=== PATIENT | male | born 1980 | race Caucasian/White ===

== ENCOUNTER 2016-11-16 08:55 | Inpatient (IN) | payer BC, OTHER ==
[~2016-11-16] VITALS: Ht 182.9 cm; Wt 90.0 kg
[~2016-11-16 08:55] MED LIST: VENL75 PO
[2016-11-16 09:00] VITALS: BP 144/74; PULSE 113; RESP 16; TEMP 99; O2SAT 96
--- NOTE | 2016-11-16 09:51 | PD ---
HPI Chief Complaint: Skin Problem Time Seen by Provider: 09:35 Travel History International Travel<30 days: No Contact w/Intl Traveler<30days: No Traveled to known affect area: No History of Present Illness HPI This patient complains of infection in his right elbow. Duration 2-3 days. Severity is moderate. He took his temperature at home was 100. Yesterday he saw his family physician who lisbeth fluid out of his elbow but the culture is still pending. He spoke with the physician this morning and they were told to come to the ER. He is currently taking Keflex and doxycycline and received Rocephin injection yesterday. No IV drug use history. Symptoms have no alleviating factors. He says the redness warmth and pain or spreading despite the antibiotics. PFSH Past Medical History Diabetes: No Endocrine: No Immune Disorder: No Psychiatric: Yes Thyroid Disease: No ?: Not Past Surgical History Abdominal Surgery: Yes (Bilateral Hernia SX as child) Joint Replacement: No Social History Alcohol Use: No Tobacco Use: No Substance Use: No Allergies-Medications (Allergen,Severity, Reaction): Coded Allergies: No Known Allergies (Unverified , 03/26/13) Reported Meds & Prescriptions Reported Meds & Active Scripts Active Reported Effexor 75 Mg Tab (Venlafaxine HCl) 75 Mg Tab 75 Mg PO BID Review of Systems General / Constitutional: Positive: Fever Eyes: No: Visual changes HENT: No: Headaches Cardiovascular: Positive: Tachycardia, No: Chest Pain or Discomfort Respiratory: No: Shortness of Breath Gastrointestinal: No: Abdominal Pain Genitourinary: No: Dysuria Musculoskeletal: Positive: Arthralgias, Pain Skin: No Rash Neurologic: No: Weakness Psychiatric: No: Depression Endocrine: No: Polydipsia Hematologic/Lymphatic: No: Easy Bruising Physical Exam Narrative GENERAL: Well-nourished, well-developed patient in no apparent distress. SKIN: Focused skin assessment reveals no rash and nodules. Skin is Warm and dry. HEAD: Atraumatic. Normocephalic. EYES: Pupils equal and round. No scleral icterus. No injection or drainage. ENT: No nasal bleeding or discharge. Mucous membranes pink and moist. NECK: Trachea midline. No JVD. CARDIOVASCULAR: Regular rate and rhythm. No murmur appreciated. RESPIRATORY: No accessory muscle use. Clear to auscultation. Breath sounds equal bilaterally. GASTROINTESTINAL: Abdomen soft, non-tender, nondistended. Hepatic and splenic margins not palpable. MUSCULOSKELETAL: No obvious deformities. No clubbing. No cyanosis. No edema. Right elbow shows that there is macular erythema around the joint as well as some swelling. It is tender. He does have some pain with passive extension of the elbow. Neurovascularly intact. NEUROLOGICAL: Awake and alert. No obvious cranial nerve deficits. Motor grossly within normal limits. Normal speech. PSYCHIATRIC: Appropriate mood and affect; insight and judgment normal. Data Data Last Documented VS Vital Signs Date Time Temp Pulse Resp B/P (MAP) Pulse Ox O2 Delivery O2 Flow Rate FiO2 11/16/16 09:09 16 11/16/16 09:00 99.0 113 144/74 (97) 96 Orders Orders Iv Access Insert/Monitor (11/16/16 09:46) Complete Blood Count With Diff (11/16/16 09:46) Basic Metabolic Panel (Bmp) (11/16/16 09:46) Prothrombin Time / Inr (Pt) (11/16/16 09:46) Act Partial Throm Time (Ptt) (11/16/16 09:46) Vancomycin Inj (Vancomycin Inj) (11/16/16 10:00) Oxycodone-Acetamin 5-325 Mg (Percocet (11/16/16 10:45) Admit Order (Ed Use Only) (11/16/16 11:47) Admit To Inpatient (11/16/16 ) Code Status (11/16/16 11:47) Vital Signs (Adult) Q4H (11/16/16 11:47) Activity Oob With Assistance (11/16/16 11:47) Diet Regular Basic (11/16/16 Lunch) Sodium Chloride 0.9% Flush (Ns Flush) (11/16/16 12:00) Sodium Chloride 0.9% Flush (Ns Flush) (11/16/16 21:00) Acetaminophen (Tylenol) (11/16/16 12:00) Ondansetron Inj (Zofran Inj) (11/16/16 12:00) Comprehensive Metabolic Panel (11/17/16 06:00) Complete Blood Count With Diff (11/17/16 06:00) Acetamin-Hydrocod 325-5 Mg (Merino 5-325 (11/16/16 12:00) Acetamin-Hydrocod 325-10 Mg (Merino 10-32 (11/16/16 12:00) Naloxone Inj (Narcan Inj) (11/16/16 12:00) Inpatient Certification (11/16/16 ) Vancomycin Consult Pharmacy (Vancomycin (11/16/16 12:00) Vancomycin Inj (Vancomycin Inj) (11/17/16 09:00) Labs Laboratory Tests Test 11/16/16 09:50 White Blood Count 10.9 TH/MM3 Red Blood Count 4.90 MIL/MM3 Hemoglobin 15.0 GM/DL Hematocrit 42.3 % Mean Corpuscular Volume 86.3 FL Mean Corpuscular Hemoglobin 30.6 PG Mean Corpuscular Hemoglobin Concent 35.5 % Red Cell Distribution Width 12.7 % Platelet Count 155 TH/MM3 Mean Platelet Volume 9.7 FL Neutrophils (%) (Auto) 83.8 % Lymphocytes (%) (Auto) 7.4 % Monocytes (%) (Auto) 8.2 % Eosinophils (%) (Auto) 0.4 % Basophils (%) (Auto) 0.2 % Neutrophils # (Auto) 9.1 TH/MM3 Lymphocytes # (Auto) 0.8 TH/MM3 Monocytes # (Auto) 0.9 TH/MM3 Eosinophils # (Auto) 0.0 TH/MM3 Basophils # (Auto) 0.0 TH/MM3 CBC Comment DIFF FINAL Differential Comment Prothrombin Time 10.8 SEC Prothromb Time International Ratio 1.0 RATIO Activated Partial Thromboplast Time 30.1 SEC Blood Urea Nitrogen 9 MG/DL Creatinine 1.19 MG/DL Random Glucose 110 MG/DL Calcium Level 8.6 MG/DL Sodium Level 137 MEQ/L Potassium Level 4.0 MEQ/L Chloride Level 104 MEQ/L Carbon Dioxide Level 26.2 MEQ/L Anion Gap 7 MEQ/L Estimat Glomerular Filtration Rate 68 ML/MIN [facility] Medical Decision Making Medical Screen Exam Complete: Yes Emergency Medical Condition: Yes Medical Record Reviewed: Yes Differential Diagnosis Septic joint, bursitis, cellulitis Narrative Course I have reviewed the patient's electronic medical record. Patient was last here 2013 IV placed I gave the patient 1 g IV vancomycin Fluid has already been drawn for culture but is pending according to the patient. I have placed a call to the family physician to discuss and confirm. CBC is normal Metabolic profile is normal Coagulation studies are normal I spoke with the physician who saw this patient yesterday. He was sent pictures of the elbow by the patient's . He says that this is definitely worsened since yesterday and agrees with admission for IV antibiotics. They lisbeth fluid from the bursa sac not the joint itself. I reviewed this with Dr. Lima who will admit. He will figure out if this is a septic joint or not. Patient does have low-grade temp and tachycardia but only minor discomfort with passive extension Sepsis Criteria SIRS Criteria (2 or more): Heart rate over 90 Sepsis Criteria (SIRS+source): Infect source susp/known Diagnosis Primary Impression: Cellulitis of right arm Additional Impression: Failure of outpatient treatment Admitting Information Admitting Physician Requests: it Flash Dominguez MD Nov 16, 2016 09:51
[2016-11-16] MEDS ORDERED: VANCOMYCIN INJ 1,000 MG in SODIUM CHLOR 0.9% 250 ML INJ 250 ML IV ONE (10:00)
[2016-11-16 10:22] LABS: AUTOMATED NEUTROPHIL # 9.1 TH/MM3 (1.8-7.7); BASOPHIL % 0.2 % (0.0-2.0); EOSINOPHIL % 0.4 % (0.0-4.0); HEMATOCRIT 42.3 % (39.0-51.0); HEMO FLAGS DIFF FINAL; LYMPH % 7.4 % (9.0-44.0); LYMPHOCYTE # 0.8 TH/MM3 (1.0-4.8); MEAN CELL VOLUME 86.3 FL (80.0-100.0); MEAN CORPUSCULAR HEMOGLOBIN 30.6 PG (27.0-34.0); MEAN CORPUSCULAR HGB CONC 35.5 % (32.0-36.0); MONO % 8.2 % (0.0-8.0); NEUT % 83.8 % (16.0-70.0); PLATELET COUNT 155 TH/MM3 (150-450); RED CELL DISTRIBUTION WIDTH 12.7 % (11.6-17.2); WHITE BLOOD COUNT 10.9 TH/MM3 (4.0-11.0)
[2016-11-16 10:26] LABS: APTT (PATIENT) 30.1 SEC (24.3-30.1); PROTHROMBIN TIME - PATIENT 10.8 SEC (9.8-11.6)
[2016-11-16 10:27] LABS: BICARBONATE 26.2 MEQ/L (21.0-32.0)
[2016-11-16] MEDS ORDERED: oxyCODONE/ACETAMINOPHEN 5 MG/325 MG TAB PO ONE (10:45)
[2016-11-16 12:00] VITALS: BP 127/80; PULSE 92; RESP 16; O2SAT 98
[2016-11-16] MEDS ORDERED: ONDANSETRON HCL 4 MG/2 ML VIAL IVP PRN (12:00)
[2016-11-16] MEDS ORDERED: ACETAMINOPHEN/HYDROcodone 325 MG/5 MG TAB PO PRN (12:00)
[2016-11-16] MEDS ORDERED: NALOXONE HCL 0.4 MG/ML AMP IV PRN (12:00)
[2016-11-16] MEDS ORDERED: ACETAMINOPHEN 325 MG TAB PO PRN (12:00)
[2016-11-16] MEDS ORDERED: Vancomycin Consult Pharmacy 1 EA OTHER SCH (12:00)
[2016-11-16] MEDS ORDERED: SODIUM CHLORIDE 0.9% FLUSH 10 ML FLUSH IV FLUSH PRN (12:00)
[2016-11-16 13:58] VITALS: BP 118/73; PULSE 87; RESP 17; TEMP 97.5; O2SAT 98
[2016-11-16] MEDS: ACETAMINOPHEN/HYDROcodone 325 MG/10 MG TAB PO PRN ×3 (15:08→23:21)
[2016-11-16 16:00] VITALS: BP 130/73; PULSE 87; RESP 17; TEMP 98.8; O2SAT 99
[2016-11-16] MEDS ORDERED: ENALAPRILAT 1.25 MG/ML VIAL IV PUSH PRN (16:00)
--- NOTE | 2016-11-16 16:05 | HHI.HP ---
HPI Service [facility] Primary Care Physician Dann Bush, DO Admission Diagnosis R elbow infection, failure of outpt RX Diagnoses: (1) Bursitis due to bacterial infection (2) Cellulitis of right arm (3) Failure of outpatient treatment Chief Complaint: Swollen And painful right elbow Travel History International Travel<30 Days: No Contact w/Intl Traveler <30 Da: No Traveled to Known Affected Are: No Sepsis Criteria SIRS Criteria (2 or more): Temp > 100.9 or < 96.8, Heart rate over 90 Sepsis Criteria (SIRS+source): Infect source susp/known Criteria Outcome: Meets sepsis criteria History of Present Illness 36-year-old male with a history of anxiety present to the ED for evaluation of acute onset of right elbow swollen redness and pain rated 6/10 in intensity since Saturday night associated with decrease range of motion as well as febrile episodes. Patient was seen by his PCP on and was prescribed Keflex 500 mg every 8 doxy 100 mg twice a day and was given Rocephin 1 g IM 1. X-ray of the elbow was obtained. Patient also stated that fluid was collected along with blood culture from his elbow, however denies any purulence. This morning, when patient awoke he noticed increased swelling and redness as well as more pain associated with his right elbow. He was advised by his PCP to come to the ED for further evaluation. He reports that 2 weeks ago he sustained a small cut to his right elbow, and at the time had no sign of infection. Otherwise patient denies any GI bleed, he has no chest pain or shortness of breath. Review of Systems Except as stated in HPI: all other systems reviewed are Neg Past Family Social History Past Medical History Anxiety Past Surgical History Bilateral hernia repair as a child Reported Medications Effexor Allergies: Coded Allergies: No Known Allergies (Unverified , 03/26/13) Family History Father has history of hyperlipidemia. There is a strong family history of breast cancer on his paternal side Social History Patient denies tobacco, illicit drug intake. Reports social alcohol use. Physical Exam Vital Signs Vital Signs Date Time Temp Pulse Resp B/P (MAP) Pulse Ox O2 Delivery O2 Flow Rate FiO2 11/16/16 13:58 97.5 87 17 118/73 (88) 98 11/16/16 13:46 11/16/16 12:00 92 16 127/80 (96) 98 Room Air 11/16/16 11:47 17 11/16/16 09:09 16 11/16/16 09:00 99.0 113 16 144/74 (97) 96 Physical Exam GENERAL: This is a well-nourished, well-developed patient, in no apparent distress. SKIN: No rashes, ecchymoses or lesions. Cool and dry. HEAD: Atraumatic. Normocephalic. No temporal or scalp tenderness. EYES: Pupils equal round and reactive. Extraocular motions intact. No scleral icterus. No injection or drainage. ENT: Nose without bleeding, purulent drainage or septal hematoma. Throat without erythema, tonsillar hypertrophy or exudate. Uvula midline. Airway patent. NECK: Trachea midline. No JVD or lymphadenopathy. Supple, nontender, no meningeal signs. CARDIOVASCULAR: Regular rate and rhythm without murmurs, gallops, or rubs. RESPIRATORY: Clear to auscultation. Breath sounds equal bilaterally. No wheezes , rales, or rhonchi. GASTROINTESTINAL: Abdomen soft, non-tender, nondistended. No hepato-splenomegaly , or palpable masses. No guarding. MUSCULOSKELETAL: Extremities without clubbing, cyanosis, or edema. No joint tenderness, effusion, or edema noted. Right elbow shows that there is macular erythema around the joint as well as some swelling. Neurovascularly intact. NEUROLOGICAL: Awake and alert. Cranial nerves II through XII intact. Motor and sensory grossly within normal limits. Five out of 5 muscle strength in all muscle groups. Normal speech. Laboratory Laboratory Tests Test 11/16/16 09:50 White Blood Count 10.9 Red Blood Count 4.90 Hemoglobin 15.0 Hematocrit 42.3 Mean Corpuscular Volume 86.3 Mean Corpuscular Hemoglobin 30.6 Mean Corpuscular Hemoglobin Concent 35.5 Red Cell Distribution Width 12.7 Platelet Count 155 Mean Platelet Volume 9.7 Neutrophils (%) (Auto) 83.8 Lymphocytes (%) (Auto) 7.4 Monocytes (%) (Auto) 8.2 Eosinophils (%) (Auto) 0.4 Basophils (%) (Auto) 0.2 Neutrophils # (Auto) 9.1 Lymphocytes # (Auto) 0.8 Monocytes # (Auto) 0.9 Eosinophils # (Auto) 0.0 Basophils # (Auto) 0.0 CBC Comment DIFF FINAL Differential Comment Prothrombin Time 10.8 Prothromb Time International Ratio 1.0 Activated Partial Thromboplast Time 30.1 Blood Urea Nitrogen 9 Creatinine 1.19 Random Glucose 110 Calcium Level 8.6 Sodium Level 137 Potassium Level 4.0 Chloride Level 104 Carbon Dioxide Level 26.2 Anion Gap 7 Estimat Glomerular Filtration Rate 68 Result Diagram: 11/16/1650 11/16/16949 Septic Shock Reassessment Heart: Regular rate and rhythm Lungs: Clear Skin: Warm Capillary Refill: >2 seconds Caprini VTE Risk Assessment Caprini VTE Risk Assessment: No/Low Risk (score <= 1) Caprini Risk Assessment Model Point Value = 1 Point Value = 2 Point Value = 3 Point Value = 5 Age 41-60 Minor surgery BMI > 25 kg/m2 Swollen legs Varicose veins or History of unexplained or recurrent spontaneous Oral contraceptives or hormone replacement Sepsis (< 1 month) Serious lung disease, including pneumonia (< 1 month) Abnormal pulmonary function Acute myocardial infarction Congestive heart failure (< 1 month) History of inflammatory bowel disease Medical patient at bed rest Age 61-74 Arthroscopic surgery Major open surgery (> 45 min) Laparoscopic surgery (> 45 min) Malignancy Confined to bed (> 72 hours) Immobilizing plaster cast Central venous access Age >= 75 History of VTE Family history of VTE Factor V Leiden Prothrombin [id number] Lupus anticoagulant Anticardiolipin antibodies Elevated serum homocysteine Heparin-induced thrombocytopenia Other congenital or acquired thrombophilia Stroke (< 1 month) Elective arthroplasty Hip, pelvis, or leg fracture Acute spinal cord injury (< 1 month) Prophylaxis Regimen Total Risk Factor Score Risk Level Prophylaxis Regimen 0-1 Low Early ambulation 2 Moderate Order ONE of the following: *Sequential Compression Device (SCD) *Heparin 5000 units SQ BID 3-4 Higher Order ONE of the following medications: *Heparin 5000 units SQ TID *Enoxaparin/Lovenox 40 mg SQ daily (WT < 150 kg, CrCl > 30 mL/min) *Enoxaparin/Lovenox 30 mg SQ daily (WT < 150 kg, CrCl > 10-29 mL/min) *Enoxaparin/Lovenox 30 mg SQ BID (WT < 150 kg, CrCl > 30 mL/min) AND/OR *Sequential Compression Device (SCD) 5 or more Highest Order ONE of the following medications: *Heparin 5000 units SQ TID (Preferred with Epidurals) *Enoxaparin/Lovenox 40 mg SQ daily (WT < 150 kg, CrCl > 30 mL/min) *Enoxaparin/Lovenox 30 mg SQ daily (WT < 150 kg, CrCl > 10-29 mL/min) *Enoxaparin/Lovenox 30 mg SQ BID (WT < 150 kg, CrCl > 30 mL/min) AND *Sequential Compression Device (SCD) Assessment and Plan Problem List: (1) Sepsis ICD Code: A41.9 - Sepsis, unspecified organism (2) Cellulitis of right arm ICD Code: L03.113 - Cellulitis of right upper limb Status: Acute (3) Bursitis due to bacterial infection ICD Code: M71.10 - Other infective bursitis, unspecified site; B96.89 - Other specified bacterial agents as the cause of diseases classified elsewhere (4) Failure of outpatient treatment ICD Code: Z78.9 - Other specified health status Status: Acute Assessment and Plan 36-year-old man with Sepsis: Patient had subjective fever, HR 113; source of infection (cellulitis right elbow/bursitis due to infection); status post vancomycin IV 1 in ED. Will continue vancomycin and start Zosyn pending culture report Cellulitis right elbow Bursitis due to infection of right elbow Rule out septic joint Check right elbow ULTRASOUND Check CRP, ESR Start vancomycin and Zosyn IV pending culture reports Consider consultation to orthopedic surgery possible aspiration pending right elbow Pain management accordingly Anxiety Resume Effexor DVT prophylaxis: Low risk for VTE; encourage ambulation Code Status Full code Discussed Condition With Patient, ED physician Physician Certification 2 Midnight Certification Type: Admission for Inpatient Services Order for Inpatient Services The services are ordered in accordance with Medicare regulations or non- Medicare payer requirements, as applicable. In the case of services not specified as inpatient-only, they are appropriately provided as inpatient services in accordance with the 2-midnight benchmark. Estimated LOS (days): 2 days is the estimated time the patient will need to remain in the hospital, assuming treatment plan goals are met and no additional complications. Post-Hospital Plan: Not yet determined Shemar Lima MD Nov 16, 2016 16:05
[2016-11-16] MEDS: PIPERACIL-TAZO 3.375 GM PREMIX 50 ML IV SCH (17:27)
--- NOTE | 2016-11-16 18:21 | RADRPT ---
EXAM DATE/TIME: 11/16/2016 17:01 [facility] COMPARISON: No previous studies available for comparison. INDICATIONS : Right arm swelling and pain. MEDICAL HISTORY : Anxiety. Right elbow swelling and pain. SURGICAL HISTORY : Inguinal hernia repair. ENCOUNTER: Initial ACUITY: 4-6 days PAIN SCORE: 2/10 LOCATION: Right arm. AREA EVALUATED: Elbow, Posterior arm just prox and just distal to elbow. FINDINGS: There is a crescentic fluid collection along the distal posterior arm near the elbow measuring up to 2.7 cm in length and 4.4 mm in diameter with overlying soft tissue swelling, edema and increased vasc ularity. CONCLUSION: 1. Small crescentic fluid collection in the soft tissues overlying the distal right arm and elbow wit h probable overlying cellulitis. Russell Knapp MD on November 16, 2016 at 18:18 Board Certified Radiologist. This report was verified electronically.
[2016-11-16 20:00] VITALS: BP 122/70; PULSE 101; RESP 20; TEMP 100; O2SAT 98
[2016-11-16] MEDS: VENLAFAXINE HCL 75 MG TAB PO SCH (21:00)
[2016-11-16] MEDS ORDERED: ZOLPIDEM TARTRATE 5 MG TAB PO PRN (21:00)
[2016-11-16] MEDS: SODIUM CHLORIDE 0.9% FLUSH 10 ML FLUSH IV FLUSH SCH (21:25)
[2016-11-16] MEDS: LACTOBACILLUS ACIDOPHILUS TAB PO SCH (21:26)
[2016-11-16] MEDS: VANCOMYCIN INJ 1,250 MG in SODIUM CHLOR 0.9% 250 ML INJ 250 ML IV SCH (21:28)
[2016-11-17] VITALS: BP 124/73; PULSE 70; RESP 20; TEMP 96.3; O2SAT 96
[2016-11-17] MEDS: PIPERACIL-TAZO 3.375 GM PREMIX 50 ML IV SCH ×4 (00:33→23:46)
[2016-11-17] MEDS: ACETAMINOPHEN/HYDROcodone 325 MG/10 MG TAB PO PRN ×3 (07:37→17:35)
[2016-11-17 08:00] VITALS: BP 116/72; PULSE 90; RESP 17; TEMP 98.2; O2SAT 96
[2016-11-17 08:00] LABS: AUTOMATED NEUTROPHIL # 6.1 TH/MM3 (1.8-7.7); BASOPHIL % 0.4 % (0.0-2.0); EOSINOPHIL # 0.2 TH/MM3 (0-0.4); EOSINOPHIL % 2.2 % (0.0-4.0); HEMATOCRIT 42.5 % (39.0-51.0); HEMO FLAGS DIFF FINAL; LYMPH % 15.5 % (9.0-44.0); LYMPHOCYTE # 1.3 TH/MM3 (1.0-4.8); MEAN CELL VOLUME 86.9 FL (80.0-100.0); MEAN CORPUSCULAR HEMOGLOBIN 30.8 PG (27.0-34.0); MEAN CORPUSCULAR HGB CONC 35.4 % (32.0-36.0); MONO % 9.7 % (0.0-8.0); NEUT % 72.2 % (16.0-70.0); PLATELET COUNT 155 TH/MM3 (150-450); RED BLOOD COUNT 4.89 MIL/MM3 (4.50-5.90); RED CELL DISTRIBUTION WIDTH 12.9 % (11.6-17.2); WHITE BLOOD COUNT 8.4 TH/MM3 (4.0-11.0)
[2016-11-17 08:10] LABS: ANION GAP 4 MEQ/L (5-15); AST (GOT) 26 U/L (15-37); BICARBONATE 28.8 MEQ/L (21.0-32.0); BLOOD UREA NITROGEN 7 MG/DL (7-18); CHLORIDE 103 MEQ/L (98-107); GLOMERULAR FILTRATION RATE 77 ML/MIN (>89); POTASSIUM 3.8 MEQ/L (3.5-5.1); SODIUM (NA) 136 MEQ/L (136-145)
[2016-11-17 08:11] LABS: ALKALINE PHOSPHATASE 52 U/L (45-117); ALT (GPT) 42 U/L (12-78); TOTAL BILIRUBIN ADULT 0.9 MG/DL (0.2-1.0)
[2016-11-17] MEDS ORDERED: VANCOMYCIN INJ 1,250 MG in SODIUM CHLOR 0.9% 250 ML INJ 250 ML IV SCH (09:00)
[2016-11-17] MEDS: VENLAFAXINE HCL 75 MG TAB PO SCH ×2 (09:43→20:07)
[2016-11-17] MEDS: LACTOBACILLUS ACIDOPHILUS TAB PO SCH ×2 (09:43→20:07)
[2016-11-17] MEDS: SODIUM CHLORIDE 0.9% FLUSH 10 ML FLUSH IV FLUSH SCH ×2 (09:44→21:00)
[2016-11-17] MEDS: VANCOMYCIN INJ 1,250 MG in SODIUM CHLOR 0.9% 250 ML INJ 250 ML IV SCH ×2 (10:25→22:00)
--- NOTE | 2016-11-17 11:59 | HHI.PR ---
Subjective Remarks Follow-up sepsis/right elbow cellulitis 11/17/16-patient seen and examined, Tmax 100 at midnight however currently afebrile. Patient reports significant improvement of right elbow pain and is able now to extend and flex. He also reports decreased swelling to right elbow Objective Vitals Vital Signs Date Time Temp Pulse Resp B/P (MAP) Pulse Ox O2 Delivery O2 Flow Rate FiO2 11/17/16 08:00 98.2 90 17 116/72 (87) 96 11/17/16 00:00 96.3 70 20 124/73 (90) 96 11/16/16 20:00 100.0 101 20 122/70 (87) 98 11/16/16 16:00 98.8 87 17 130/73 (92) 99 11/16/16 13:58 97.5 87 17 118/73 (88) 98 11/16/16 13:46 11/16/16 12:00 92 16 127/80 (96) 98 Room Air I/O 11/16/16 11/16/16 11/16/16 11/17/16 11/17/16 11/17/16 07:00 15:00 23:00 07:00 15:00 23:00 Intake Total 250 ml 360 ml 240 ml Balance 250 ml 360 ml 240 ml Intake Oral 360 ml 240 ml IV Total 250 ml # Voids 1 3 # Bowel Movements 0 0 Result Diagram: 11/17/16 0743 11/17/16 0743 Imaging Last Impressions Upper Extremity Ultrasound 11/16/16 0000 Signed Impressions: Service Date/Time: Wednesday, November 16, 2016 17:01 - CONCLUSION: 1. Small crescentic fluid collection in the soft tissues overlying the distal right arm and elbow with probable overlying cellulitis. Russell Knapp MD Objective Remarks GENERAL: NAD SKIN: Warm and dry. Erythema surrounding the right elbow HEAD: Normocephalic. EYES: No scleral icterus. No injection or drainage. NECK: Supple, trachea midline. No JVD or lymphadenopathy. CARDIOVASCULAR: Regular rate and rhythm without murmurs, gallops, or rubs. RESPIRATORY: Breath sounds equal bilaterally. No accessory muscle use. GASTROINTESTINAL: Abdomen soft, non-tender, nondistended. MUSCULOSKELETAL: No cyanosis, or edema. Palpable fluid collection right elbow BACK: Nontender without obvious deformity. No CVA tenderness. A/P Problem List: (1) Sepsis ICD Code: A41.9 - Sepsis, unspecified organism (2) Cellulitis of right arm ICD Code: L03.113 - Cellulitis of right upper limb Status: Acute (3) Bursitis due to bacterial infection ICD Code: M71.10 - Other infective bursitis, unspecified site; B96.89 - Other specified bacterial agents as the cause of diseases classified elsewhere (4) Failure of outpatient treatment ICD Code: Z78.9 - Other specified health status Status: Acute Assessment and Plan 36-year-old man with Sepsis: Patient had subjective fever, HR 113; source of infection (cellulitis right elbow/bursitis due to infection); status post vancomycin IV 1 in ED. Will continue vancomycin and start Zosyn pending culture report Cellulitis right elbow Bursitis due to infection of right elbow Rule out septic joint right elbow ULTRASOUND noted with finding of fluid collection Elevated CRP, normal ESR Continue vancomycin and Zosyn IV pending culture reports Consider consultation to orthopedic surgery possible aspiration pending right elbow Pain management accordingly Anxiety Continue Effexor DVT prophylaxis: Low risk for VTE; encourage ambulation Shemar Lima MD Nov 17, 2016 11:59
[2016-11-17 12:00] VITALS: BP 130/63; PULSE 83; RESP 17; TEMP 97.4; O2SAT 98
[2016-11-17 16:00] VITALS: BP 104/60; PULSE 80; RESP 16; TEMP 98.4; O2SAT 98
[2016-11-17 20:00] VITALS: BP 116/63; PULSE 93; RESP 20; TEMP 99.1; O2SAT 96
[2016-11-17] MEDS: IBUPROFEN 400 MG TAB PO PRN (20:07)
[2016-11-17] MEDS ORDERED: PHARMACY ORDERED LAB ONE (21:45)
[2016-11-18] VITALS: BP 139/77; PULSE 77; RESP 20; TEMP 97.1; O2SAT 96
[2016-11-18 08:00] VITALS: BP 113/63; PULSE 74; RESP 16; TEMP 96.4; O2SAT 99
[2016-11-18] MEDS: SODIUM CHLORIDE 0.9% FLUSH 10 ML FLUSH IV FLUSH SCH ×2 (08:23→20:47)
[2016-11-18] MEDS: VENLAFAXINE HCL 75 MG TAB PO SCH ×2 (08:23→20:46)
[2016-11-18] MEDS: PIPERACIL-TAZO 3.375 GM PREMIX 50 ML IV SCH ×2 (08:23→17:09)
[2016-11-18] MEDS: LACTOBACILLUS ACIDOPHILUS TAB PO SCH ×2 (08:23→20:46)
[2016-11-18] MEDS: VANCOMYCIN INJ 1,250 MG in SODIUM CHLOR 0.9% 250 ML INJ 250 ML IV SCH ×2 (09:53→20:48)
[2016-11-18] MEDS: ACETAMINOPHEN/HYDROcodone 325 MG/10 MG TAB PO PRN ×3 (09:57→20:46)
--- NOTE | 2016-11-18 10:34 | HHI.PR ---
Subjective Remarks Follow-up sepsis/right elbow cellulitis 11/17/16-patient seen and examined, Tmax 100 at midnight however currently afebrile. Patient reports significant improvement of right elbow pain and is able now to extend and flex. He also reports decreased swelling to right elbow 11/18/16-patient seen and examined, currently afebrile. Denies any significant pain to the right elbow. Still has right elbow fluid collection Objective Vitals Vital Signs Date Time Temp Pulse Resp B/P (MAP) Pulse Ox O2 Delivery O2 Flow Rate FiO2 11/18/16 08:00 96.4 74 16 113/63 (80) 99 11/18/16 00:00 97.1 77 20 139/77 (97) 96 11/17/16 20:00 99.1 93 20 116/63 (80) 96 11/17/16 16:00 98.4 80 16 104/60 (75) 98 11/17/16 12:00 97.4 83 17 130/63 (85) 98 I/O 11/17/16 11/17/16 11/17/16 11/18/16 11/18/16 11/18/16 07:00 15:00 23:00 07:00 15:00 23:00 Intake Total 240 ml 1100 ml 120 ml Balance 240 ml 1100 ml 120 ml Intake Oral 240 ml 1100 ml 120 ml # Voids 3 3 2 # Bowel Movements 0 0 0 Result Diagram: 11/17/1674211/17/1643 Objective Remarks GENERAL: NAD SKIN: Warm and dry. Improving Erythema surrounding the right elbow HEAD: Normocephalic. EYES: No scleral icterus. No injection or drainage. NECK: Supple, trachea midline. No JVD or lymphadenopathy. CARDIOVASCULAR: Regular rate and rhythm without murmurs, gallops, or rubs. RESPIRATORY: Breath sounds equal bilaterally. No accessory muscle use. GASTROINTESTINAL: Abdomen soft, non-tender, nondistended. MUSCULOSKELETAL: No cyanosis, or edema. Palpable fluid collection right elbow BACK: Nontender without obvious deformity. No CVA tenderness. A/P Problem List: (1) Sepsis ICD Code: A41.9 - Sepsis, unspecified organism Status: Resolved (2) Cellulitis of right arm ICD Code: L03.113 - Cellulitis of right upper limb Status: Acute (3) Bursitis due to bacterial infection ICD Code: M71.10 - Other infective bursitis, unspecified site; B96.89 - Other specified bacterial agents as the cause of diseases classified elsewhere (4) Failure of outpatient treatment ICD Code: Z78.9 - Other specified health status Status: Acute Assessment and Plan 36-year-old man with Sepsis: Resolved continue vancomycin and start Zosyn pending culture report Cellulitis right elbow Bursitis due to infection of right elbow Rule out septic joint right elbow ULTRASOUND noted with finding of fluid collection Elevated CRP, normal ESR Continue vancomycin and Zosyn IV pending culture reports Consult orthopedic surgery possible aspiration of right elbow fluid collection Pain management accordingly Anxiety Continue Effexor DVT prophylaxis: Low risk for VTE; encourage ambulation Shemar Lima MD Nov 18, 2016 10:34
[2016-11-18 12:00] VITALS: BP 119/72; PULSE 80; RESP 17; TEMP 98.5; O2SAT 98
[2016-11-18 16:00] VITALS: BP 125/77; PULSE 83; RESP 17; TEMP 99.2; O2SAT 98
[2016-11-18] MEDS: IBUPROFEN 400 MG TAB PO PRN ×2 (16:18→22:19)
--- NOTE | 2016-11-18 16:28 | MB ---
cc: CATRACHITA GOODE DATE OF CONSULTATION 11/18/16 REASON FOR CONSULTATION Right elbow infection. CONSULTING PHYSICIAN Dr. Shemar Lima HISTORY OF PRESENT ILLNESS Tor is a 36-year-old male who was in the emergency room with right elbow pain, redness and swelling. The pain started this past Saturday. He has had trouble moving his arm. He has noticed increased swelling around the back of his arm. He has noticed bright redness of the skin. He presented to the emergency room, has been admitted for this injury. He did have a small cut to his elbow approximately 2 weeks ago. He has no other recent illness or problems. He is otherwise healthy. He denies any traumatic injuries. PAST MEDICAL HISTORY/ILLNESSES Anxiety. PAST SURGICAL HISTORY Bilateral hernia repair. MEDICATIONS 1. Effexor. ALLERGIES None. SOCIAL HISTORY The patient denies tobacco or drug use. He drinks alcohol occasionally. FAMILY HISTORY Positive for high cholesterol and a family history of breast cancer. REVIEW OF SYSTEMS The patient denies headache, visual changes, neck pain, chest pain, shortness of breath, abdominal pain, nausea, vomiting, recent weight loss, numbness or tingling of extremities. He complains of right elbow redness, swelling and pain. PHYSICAL EXAMINATION GENERAL: The patient is a pleasant 36-year-old male, no acute distress. He is awake and alert. He is alert and oriented times three. He is in no acute distress. VITAL SIGNS: Temperature 98.5, pulse 80, respirations 17, blood pressure 119/72, o2 sats 98% on room air. HEENT: Head normocephalic. Pupils are equal. NECK: Soft, nontender. Trachea is midline. ABDOMEN: Soft, nontender, nondistended. EXTREMITIES: Examination of right upper extremity reveals no pain with shoulder, wrist or finger motion. Examination of his elbow reveals range of motion from 10 degrees up to 130 degrees with minimal pain. He has significant fluctuance over the olecranon bursa. There is a large area of cellulitis around the arm. The forearm compartments are soft. He has intact sensation to all fingers. Radial pulses palpable. Examination of left arm reveals no pain with shoulder, elbow or wrist motion. He has intact sensation to all fingers. He has good capillary refill in all fingers. Skin is intact. Radial pulses palpable. Examination of bilateral lower extremities reveals no pain with hip, knee or ankle motion. He has intact dorsalis pedis pulses palpable. IMPRESSION Right elbow cellulitis with septic olecranon bursitis. PLAN Treatment options were discussed with the patient. At this point he will need irrigation and debridement of the olecranon bursa. There is a large area of fluctuance. I explained that antibiotics alone will not be able to get rid of this fluid collection and abscess. I will plan on irrigation and debridement of olecranon bursa tomorrow. The risks of surgery include bleeding, injection, injury to arteries, nerves, blood vessels, recurrent infection, wound complications as well as medical complications associated with anesthesia. All questions were answered. I will plan on surgery tomorrow. A mid-level provider in my office, nurse practitioner or PA, may see this patient on a follow-up basis and continue to implement the objective of this plan including: Starting or adjusting medications, injections of muscle, tendon, bursa or joints, cast application, orthotic or brace application, physical therapy, further radiographic studies including x-ray, MRI, CT, ultrasounds or bone scan, vascular studies, neurologic studies, or other specialist consultations, and proceeding with surgical management as appropriate. MD RAMA Jewell/RHINA /4:03 PM /4:07 PM
[2016-11-18 19:00] VITALS: BP 119/76; PULSE 92; RESP 18; TEMP 97.7; O2SAT 99
[2016-11-19] VITALS: BP 115/67; PULSE 66; RESP 18; TEMP 97.6; O2SAT 99
[2016-11-19] MEDS: PIPERACIL-TAZO 3.375 GM PREMIX 50 ML IV SCH ×3 (00:22→17:12)
[2016-11-19] MEDS: ACETAMINOPHEN/HYDROcodone 325 MG/10 MG TAB PO PRN ×3 (00:23→18:35)
[2016-11-19] MEDS ORDERED: SODIUM CHLORID 0.9% 500 ML IV PRN (02:00)
[2016-11-19] MEDS ORDERED: CHLORHEXIDINE GLUCONATE 2 % 1 PACK (2 CLOTHS) TOPICAL PRN (02:00)
[2016-11-19] MEDS ORDERED: METOPROLOL TARTRATE 25 MG TAB PO PRN (02:00)
[2016-11-19] MEDS ORDERED: POVIDONE IODINE 5% (ANTISEPSIS KIT) 4 APPLICATIONS EACH NARE PRN (02:00)
[2016-11-19] MEDS ORDERED: INSULIN HUMAN REGULAR 1,000 UNITS/10 ML VIAL SQ PRN (02:00)
[2016-11-19] MEDS ORDERED: LACTATED RINGER'S 1000 ML IV PRN (02:00)
[2016-11-19 05:49] VITALS: BP 111/64; PULSE 68; RESP 18; TEMP 97.4; O2SAT 97
[2016-11-19 08:00] VITALS: BP 122/75; PULSE 81; RESP 17; TEMP 96.4; O2SAT 97
[2016-11-19] MEDS: LACTOBACILLUS ACIDOPHILUS TAB PO SCH ×2 (09:00→21:35)
[2016-11-19] MEDS ORDERED: GENTAMICIN SULFATE 80 MG/2 ML VIAL ONE (09:03)
--- NOTE | 2016-11-19 09:11 | HHI.PR ---
Subjective Remarks Follow-up sepsis/right elbow cellulitis 11/17/16-patient seen and examined, Tmax 100 at midnight however currently afebrile. Patient reports significant improvement of right elbow pain and is able now to extend and flex. He also reports decreased swelling to right elbow 11/18/16-patient seen and examined, currently afebrile. Denies any significant pain to the right elbow. Still has right elbow fluid collection 11/19/16-patient seen and examined, currently nothing by mouth pending incision and drainage in the OR by orthopedic surgery of right infected bursitis. Afebrile and denies any significant pain to right elbow Objective Vitals Vital Signs Date Time Temp Pulse Resp B/P (MAP) Pulse Ox O2 Delivery O2 Flow Rate FiO2 11/19/16 08:00 96.4 81 17 122/75 (91) 97 11/19/16 05:49 97.4 68 18 111/64 (80) 97 11/19/16 04:00 Room Air 11/19/16 00:00 97.6 66 18 115/67 (83) 99 11/19/16 00:00 Room Air 11/18/16 20:00 Room Air 11/18/16 19:00 97.7 92 18 119/76 (90) 99 11/18/16 16:00 99.2 83 17 125/77 (93) 98 11/18/16 12:00 98.5 80 17 119/72 (88) 98 I/O 11/18/16 11/18/16 11/18/16 11/19/16 11/19/16 11/19/16 07:00 15:00 23:00 07:00 15:00 23:00 Intake Total 120 ml 312 ml 842.5 ml 410 ml Balance 120 ml 312 ml 842.5 ml 410 ml Intake Oral 120 ml 530 ml 360 ml IV Total 312 ml 312.5 ml 50 ml # Voids 2 4 3 # Bowel Movements 0 0 Result Diagram: 11/17/1674211/17/16742 Objective Remarks GENERAL: NAD SKIN: Warm and dry. Improving Erythema surrounding the right elbow HEAD: Normocephalic. EYES: No scleral icterus. No injection or drainage. NECK: Supple, trachea midline. No JVD or lymphadenopathy. CARDIOVASCULAR: Regular rate and rhythm without murmurs, gallops, or rubs. RESPIRATORY: Breath sounds equal bilaterally. No accessory muscle use. GASTROINTESTINAL: Abdomen soft, non-tender, nondistended. MUSCULOSKELETAL: No cyanosis, or edema. Palpable fluid collection right elbow BACK: Nontender without obvious deformity. No CVA tenderness. A/P Problem List: (1) Sepsis ICD Code: A41.9 - Sepsis, unspecified organism Status: Resolved (2) Cellulitis of right arm ICD Code: L03.113 - Cellulitis of right upper limb Status: Acute (3) Bursitis due to bacterial infection ICD Code: M71.10 - Other infective bursitis, unspecified site; B96.89 - Other specified bacterial agents as the cause of diseases classified elsewhere (4) Failure of outpatient treatment ICD Code: Z78.9 - Other specified health status Status: Acute Assessment and Plan 36-year-old man with Sepsis: Resolved continue vancomycin and Zosyn pending culture report Cellulitis right elbow Bursitis due to infection of right elbow Rule out septic joint right elbow ULTRASOUND noted with finding of fluid collection Elevated CRP, normal ESR Continue vancomycin and Zosyn IV pending culture reports Appreciate input from orthopedic surgery plan I&D of infected right elbow bursitis today 11/19/16 Pain management accordingly Anxiety Continue Effexor DVT prophylaxis: Low risk for VTE; encourage ambulation Shemar Lima MD Nov 19, 2016 09:11
[2016-11-19] MEDS ORDERED: VANCOMYCIN 500 MG VIAL ONE (09:27)
[2016-11-19] MEDS ORDERED: VANCOMYCIN HCL 1000 MG VIAL ONE (09:27)
[2016-11-19] MEDS ORDERED: diphenhydrAMINE HCL 25 MG CAP PO PRN (10:30)
[2016-11-19] MEDS ORDERED: SODIUM CHLORIDE 0.9% FLUSH 5 ML FLUSH IVF PRN (10:30)
[2016-11-19] MEDS ORDERED: Post-op Orders (for Pharmacy) MISC XX ONE (10:30)
[2016-11-19] MEDS: VANCOMYCIN INJ 1,250 MG in SODIUM CHLOR 0.9% 250 ML INJ 250 ML IV SCH ×2 (10:31→21:35)
--- NOTE | 2016-11-19 10:32 | PD.OP ---
cc: Miguelangel Rothman MD Operative Report Date of Surgery: Nov 19, 2016 Preoperative Diagnosis: Right elbow infected olecranon bursitis Postoperative Diagnosis: Procedure: Irrigation and debridement with excision of right olecranon bursa Anesthesia: Gen. Surgeon: Miguelangel Rothman Mop Handle Assembler(s): Abraham Tyson PA-C The surgical procedure was assisted by my physician sourcing assistant. My P.A. presence was necessary throughout this case for the manipulation and positioning of the surgical extremity. My P.A. was assisting me throughout the duration of this procedure. The skill set of a physician sourcing assistant was medically necessary to complete this procedure. During the surgical case the electro mechanical technician was working at the back table and the physician sourcing assistant was directly assisting me. Operation and Findings: .Patient was seen and evaluated preoperatively. Patient was found to have infection of the right olecranon bursa. Fluctuance and erythema were noted. Informed consent was obtained after detailed discussion of risk and benefits of surgery. Operative site was marked. Patient was brought to the operating room. IV sedation and GETA were administered by anesthesiologist. Operative arm was prepped with alcohol followed by Hibiclens and draped in usual sterile fashion. Timeout procedure was performed. Procedure began with a 4 cm incision over the olecranon bursa. Subcutaneous tissue dissected with Bovie. A large pocket of cloudy fluid was found. Specimen was obtained for cultures and sensitivities. Curettes and rongeurs were now used to sharply debride the olecranon bursa. Curettes were also used to debride the olecranon. After excisional debridement was complete, the wound was thoroughly irrigated with sterile saline. At this point the wound was clean. Subcutaneous tissues closed with 3-0 PDS and skin was closed with 3-0 nylon. A elias drain was placed into the wound. Sterile dressings were applied. Patient was awakened and transferred to recovery in stable condition. Needle and sponge counts were correct Miguelangel Rothman MD Nov 19, 2016 10:31
[2016-11-19] MEDS ORDERED: DO NOT ADM ANY ANTICOAGULANT DRUGS PRN (10:38)
[2016-11-19] MEDS ORDERED: *morphine SULFATE 8 MG/ML PERIprocedure ONLY ONE ×2 (11:07→11:18)
[2016-11-19] MEDS ORDERED: MIDAZOLAM HCL 2 MG/2 ML VIAL IV ONE (12:00)
[2016-11-19] MEDS ORDERED: PROPOFOL 200 MG/20 ML AMP IV ONE (12:00)
[2016-11-19] MEDS: VENLAFAXINE HCL 75 MG TAB PO SCH ×2 (12:50→21:36)
[2016-11-19] MEDS: IBUPROFEN 400 MG TAB PO PRN ×2 (12:51→18:34)
[2016-11-19 13:45] VITALS: O2SAT 98
[2016-11-19] MEDS ORDERED: MORPHINE SULFATE 4 MG/ML INJ IV PUSH PRN (14:00)
[2016-11-19 16:00] VITALS: BP 105/61; PULSE 86; RESP 16; TEMP 97.1; O2SAT 94
[2016-11-19 19:00] VITALS: BP 125/78; PULSE 85; RESP 18; TEMP 98; O2SAT 96
[2016-11-19] MEDS: SODIUM CHLORIDE 0.9% FLUSH 5 ML FLUSH IVF SCH (21:00)
[2016-11-20] VITALS: BP 125/80; PULSE 71; RESP 18; TEMP 97.6; O2SAT 96
[2016-11-20] MEDS: PIPERACIL-TAZO 3.375 GM PREMIX 50 ML IV SCH ×2 (00:41→07:55)
[2016-11-20] MEDS: IBUPROFEN 400 MG TAB PO PRN ×4 (00:42→20:20)
[2016-11-20 04:00] VITALS: BP 113/66; PULSE 72; RESP 18; TEMP 97.5; O2SAT 95
[2016-11-20 05:47] LABS: AUTOMATED NEUTROPHIL # 3.5 TH/MM3 (1.8-7.7); BASOPHIL # 0.1 TH/MM3 (0-0.2); EOSINOPHIL # 0.3 TH/MM3 (0-0.4); EOSINOPHIL % 5.8 % (0.0-4.0); HEMATOCRIT 36.7 % (39.0-51.0); HEMO FLAGS DIFF FINAL; LYMPH % 25.8 % (9.0-44.0); LYMPHOCYTE # 1.6 TH/MM3 (1.0-4.8); MEAN CELL VOLUME 85.6 FL (80.0-100.0); MEAN CORPUSCULAR HEMOGLOBIN 30.7 PG (27.0-34.0); MEAN CORPUSCULAR HGB CONC 35.9 % (32.0-36.0); MONO % 9.3 % (0.0-8.0); NEUT % 58.1 % (16.0-70.0); PLATELET COUNT 208 TH/MM3 (150-450); RED BLOOD COUNT 4.28 MIL/MM3 (4.50-5.90); RED CELL DISTRIBUTION WIDTH 12.5 % (11.6-17.2)
[2016-11-20 06:06] LABS: BICARBONATE 31.8 MEQ/L (21.0-32.0); POTASSIUM 4.1 MEQ/L (3.5-5.1)
--- NOTE | 2016-11-20 07:08 | PD.ORT.PN ---
Subjective Subjective Remarks POD 1 s/p I&D right elbow doing well pain controlled. no complaints. Objective Vitals Vital Signs Date Time Temp Pulse Resp B/P (MAP) Pulse Ox O2 Delivery O2 Flow Rate FiO2 11/20/16 04:00 97.5 72 18 113/66 (82) 95 11/20/16 00:00 97.6 71 18 125/80 (95) 96 11/19/16 19:00 96 Room Air 11/19/16 19:00 98.0 85 18 125/78 (94) 96 11/19/16 16:00 97.1 86 16 105/61 (76) 94 11/19/16 13:45 98 21 11/19/16 11:30 93 11 118/81 (93) 98 Nasal Cannula 2 11/19/16 11:15 92 11 122/81 (95) 94 Nasal Cannula 2 11/19/16 11:00 90 12 117/76 (90) 94 Nasal Cannula 4 11/19/16 10:45 82 14 115/67 (83) 93 Nasal Cannula 4 11/19/16 10:39 97.7 81 12 112/60 (77) 86 Nasal Cannula 4 11/19/16 08:00 96.4 81 17 122/75 (91) 97 I/O 11/19/16 11/19/16 11/19/16 11/20/16 11/20/16 11/20/16 07:00 15:00 23:00 07:00 15:00 23:00 Intake Total 410 ml 962.5 ml 300 ml 360 ml Output Total 50 ml Balance 410 ml 912.5 ml 300 ml 360 ml Intake Oral 360 ml 300 ml 360 ml IV Total 50 ml 962.5 ml Output Estimated Blood Loss 50 ml # Voids 3 3 3 # Bowel Movements 1 Result Diagram: 11/20/160 11/20/16 0440 Objective Remarks RUE: dressings clean and dry. intact. minimal pain with motion. NVI Assessment & Plan Assessment and Plan 1) Right Infectious Olecranon Bursitis s/p I&D - POd 1 -WBAT -daily dressing changes -DC pinrose drain day 3 -awaiting cultures -infectious Dz to manage Abx -ortho cleared for DC once Abx arranged -f/u with Aaron or TASHA in 2 weeks Abraham Tyson Nov 20, 2016 07:08
[2016-11-20] MEDS ORDERED: NORC5TAB PO (07:09)
--- NOTE | 2016-11-20 07:10 | HHI.FF ---
Face to Face Verification Diagnosis: (1) Bursitis due to bacterial infection Occupational Therapy Right UE Weight Bearing: WB as tolerated Nursing Dressing Changes: Daily dressing change, Jason wrap, 4x4s, Xeroform I have seen patient Tor Aquino on 11/20/16. My clinical findings support the need for the requested home health care services because: Ltd mobility - disease progression I certify that my clinical findings support that this patient is homebound because: Post-op weakness Abraham Tyson Nov 20, 2016 07:10
[2016-11-20] MEDS: VENLAFAXINE HCL 75 MG TAB PO SCH ×2 (07:52→20:14)
[2016-11-20] MEDS: ACETAMINOPHEN/HYDROcodone 325 MG/10 MG TAB PO PRN ×4 (07:52→21:55)
[2016-11-20] MEDS: LACTOBACILLUS ACIDOPHILUS TAB PO SCH ×2 (07:52→20:14)
[2016-11-20] MEDS: SODIUM CHLORIDE 0.9% FLUSH 5 ML FLUSH IVF SCH ×2 (07:55→20:14)
[2016-11-20 08:00] VITALS: BP 116/72; PULSE 71; RESP 17; TEMP 97.9; O2SAT 96
[2016-11-20] MEDS ORDERED: PHARMACY ORDERED LAB ONE (09:45)
--- NOTE | 2016-11-20 10:08 | HHI.PR ---
Subjective Remarks Follow-up sepsis/right elbow cellulitis 11/17/16-patient seen and examined, Tmax 100 at midnight however currently afebrile. Patient reports significant improvement of right elbow pain and is able now to extend and flex. He also reports decreased swelling to right elbow 11/18/16-patient seen and examined, currently afebrile. Denies any significant pain to the right elbow. Still has right elbow fluid collection 11/19/16-patient seen and examined, currently nothing by mouth pending incision and drainage in the OR by orthopedic surgery of right infected bursitis. Afebrile and denies any significant pain to right elbow 11/20/16-patient seen and examined, status post Irrigation and debridement with excision of right olecranon bursa. Denies any pain to right elbow. Afebrile. Objective Vitals Vital Signs Date Time Temp Pulse Resp B/P (MAP) Pulse Ox O2 Delivery O2 Flow Rate FiO2 11/20/16 08:00 97.9 71 17 116/72 (87) 96 11/20/16 04:00 97.5 72 18 113/66 (82) 95 11/20/16 00:00 97.6 71 18 125/80 (95) 96 11/19/16 19:00 96 Room Air 11/19/16 19:00 98.0 85 18 125/78 (94) 96 11/19/16 16:00 97.1 86 16 105/61 (76) 94 11/19/16 13:45 98 21 11/19/16 11:30 93 11 118/81 (93) 98 Nasal Cannula 2 11/19/16 11:15 92 11 122/81 (95) 94 Nasal Cannula 2 11/19/16 11:00 90 12 117/76 (90) 94 Nasal Cannula 4 11/19/16 10:45 82 14 115/67 (83) 93 Nasal Cannula 4 11/19/16 10:39 97.7 81 12 112/60 (77) 86 Nasal Cannula 4 I/O 11/19/16 11/19/16 11/19/16 11/20/16 11/20/16 11/20/16 07:00 15:00 23:00 07:00 15:00 23:00 Intake Total 410 ml 962.5 ml 300 ml 360 ml Output Total 50 ml Balance 410 ml 912.5 ml 300 ml 360 ml Intake Oral 360 ml 300 ml 360 ml IV Total 50 ml 962.5 ml Output Estimated Blood Loss 50 ml # Voids 3 3 3 # Bowel Movements 1 Result Diagram: 11/20/1643911/20/16439 Objective Remarks GENERAL: NAD SKIN: Warm and dry. HEAD: Normocephalic. EYES: No scleral icterus. No injection or drainage. NECK: Supple, trachea midline. No JVD or lymphadenopathy. CARDIOVASCULAR: Regular rate and rhythm without murmurs, gallops, or rubs. RESPIRATORY: Breath sounds equal bilaterally. No accessory muscle use. GASTROINTESTINAL: Abdomen soft, non-tender, nondistended. MUSCULOSKELETAL: No cyanosis, or edema. Dressing over right elbow BACK: Nontender without obvious deformity. No CVA tenderness. Procedures Irrigation and debridement with excision of right olecranon bursa 11/19/16 A/P Problem List: (1) Sepsis ICD Code: A41.9 - Sepsis, unspecified organism Status: Resolved (2) Cellulitis of right arm ICD Code: L03.113 - Cellulitis of right upper limb Status: Acute (3) Bursitis due to bacterial infection ICD Code: M71.10 - Other infective bursitis, unspecified site; B96.89 - Other specified bacterial agents as the cause of diseases classified elsewhere (4) Failure of outpatient treatment ICD Code: Z78.9 - Other specified health status Status: Acute Assessment and Plan 36-year-old man with Sepsis: Resolved Cellulitis right elbow Bursitis due to infection of right elbow right elbow ULTRASOUND noted with finding of fluid collection Elevated CRP, normal ESR Continue vancomycin and discontinue Zosyn IV as culture pre surgery negative to date Appreciate input from orthopedic surgery and s/p Irrigation and debridement with excision of right olecranon bursa 11/19/16 Pain management accordingly Consult infectious disease specialist for recommendation on therapy Anxiety Continue Effexor DVT prophylaxis: Low risk for VTE; encourage ambulation Shemar Lima MD Nov 20, 2016 10:08
[2016-11-20] MEDS: VANCOMYCIN INJ 1,250 MG in SODIUM CHLOR 0.9% 250 ML INJ 250 ML IV SCH ×2 (11:14→23:05)
[2016-11-20 12:00] VITALS: BP 125/83; PULSE 81; RESP 17; TEMP 97.6; O2SAT 97
--- NOTE | 2016-11-20 14:08 | PD.ID.CON ---
History of Present Illness Service ID Consult Requested By Dr Lima Reason for Consult sepsis, R olecranon bursitis Primary Care Physician Dann Bush, Diagnoses: History of Present Illness pt is a 36 yo male without past med history he presented on 11/16 with couple days of worsening swelling, pain and redness around R elbow with redness spreading to the upper arm and also he developped low grade fever Pt was admitted and started on broad xspectruma abx (zosyn and vancomycin) Ultrasound showed Small crescentic fluid collection in the soft tissues overlying the distal right arm and elbow with probable overlying cellulitis He was evaluated by ortho and diagnosed with Right elbow infected olecranon bursitis On Nov 19, 2016 he underwent Irrigation and debridement with excision of right olecranon bursa Culture showecd no growth at 24 hrs Review of Systems Except as stated in HPI: all other systems reviewed are Neg Past Family Social History Allergies: Coded Allergies: No Known Allergies (Unverified , 03/26/13) Past Medical History Anxiety Past Surgical History Bilateral hernia repair as a child Active Ordered Medications Medications where reviewed in EMR Antibiotics Include: vancomycin Family History Father has history of hyperlipidemia. There is a strong family history of breast cancer on his paternal side Social History Patient denies tobacco, illicit drug intake. Reports social alcohol use. Physical Exam Vital Signs Vital Signs Date Time Temp Pulse Resp B/P (MAP) Pulse Ox O2 Delivery O2 Flow Rate FiO2 11/20/16 12:00 97.6 81 17 125/83 (97) 97 11/20/16 08:53 16 11/20/16 08:53 16 11/20/16 08:00 97.9 71 17 116/72 (87) 96 11/20/16 04:00 97.5 72 18 113/66 (82) 95 11/20/16 00:00 97.6 71 18 125/80 (95) 96 11/19/16 19:00 96 Room Air 11/19/16 19:00 98.0 85 18 125/78 (94) 96 11/19/16 16:00 97.1 86 16 105/61 (76) 94 Physical Exam CONSTITUTIONAL/GENERAL: This is an adequately nourished patient, in no apparent distress. TUBES/LINES/DRAINS: SKIN: No jaundice, rashes, or lesions. Skin temperature appropriate. Not diaphoretic. HEAD: Atraumatic. Normocephalic. EYES: Pupils equal and round and reactive. Extraocular motions intact. No scleral icterus. No injection or drainage. Fundi not examined. ENT: Hearing grossly normal. Nose without bleeding or purulent drainage. Throat without visible erythema, exudates, masses, or lesions. CARDIOVASCULAR: Regular rate and rhythm without murmurs, gallops, or rubs. No JVD. RESPIRATORY/CHEST: Symmetric, unlabored respirations. Clear to auscultation. Breath sounds equal bilaterally. GASTROINTESTINAL: Abdomen soft, non-tender, nondistended. No hepato-splenomegaly , or palpable masses. No guarding. Bowel sounds present. MUSCULOSKELETAL: Extremities without clubbing, cyanosis, or edema. RUE with intact surgical dressing in place no ascending cellulitis or lymphngitis noted No mottling or clubbing. LYMPHATICS: No palpable cervical or supraclavicular adenopathy. NEUROLOGICAL: Awake and alert. Motor and sensory grossly within normal limits. Follows commands. Clear speech. Moves all extremities. PSYCHIATRIC: No obvious anxiety/depression. no apparent hallucinations or other psychotic thought process. Laboratory Laboratory Tests Test 11/20/16 04:40 White Blood Count 6.0 Red Blood Count 4.28 Hemoglobin 13.2 Hematocrit 36.7 Mean Corpuscular Volume 85.6 Mean Corpuscular Hemoglobin 30.7 Mean Corpuscular Hemoglobin Concent 35.9 Red Cell Distribution Width 12.5 Platelet Count 208 Mean Platelet Volume 8.4 Neutrophils (%) (Auto) 58.1 Lymphocytes (%) (Auto) 25.8 Monocytes (%) (Auto) 9.3 Eosinophils (%) (Auto) 5.8 Basophils (%) (Auto) 1.0 Neutrophils # (Auto) 3.5 Lymphocytes # (Auto) 1.6 Monocytes # (Auto) 0.6 Eosinophils # (Auto) 0.3 Basophils # (Auto) 0.1 CBC Comment DIFF FINAL Differential Comment Blood Urea Nitrogen 6 Creatinine 1.14 Random Glucose 89 Calcium Level 8.4 Sodium Level 140 Potassium Level 4.1 Chloride Level 103 Carbon Dioxide Level 31.8 Anion Gap 5 Estimat Glomerular Filtration Rate 72 Date/Time Source Procedure Growth Status 11/16/16 20:55 Blood Peripheral Aerobic Blood Culture - Preliminary NO GROWTH IN 4 DAYS Resulted 11/16/16 20:55 Blood Peripheral Anaerobic Blood Culture - Preliminary NO GROWTH IN 4 DAYS Resulted 11/19/16 10:16 Wound Elbow Acid Fast Stain Pending Received 11/19/16 10:16 Wound Elbow Mycobacterial Culture Pending Received Result Diagram: 11/20/16 0440 11/20/16 0440 Imaging Last Impressions Upper Extremity Ultrasound 11/16/16 0000 Signed Impressions: Service Date/Time: Wednesday, November 16, 2016 17:01 - CONCLUSION: 1. Small crescentic fluid collection in the soft tissues overlying the distal right arm and elbow with probable overlying cellulitis. Russell Knapp MD Assessment and Plan Assessment and Plan Right elbow olecranon septic bursitis, sp I+D Probably staph cultures no growth, abx use 3 days prior to culture was obtained cont [place] bernardo zosyn - ful surgical clx Nataly Figueredo MD Nov 20, 2016 14:08
[2016-11-20 16:00] VITALS: BP 121/76; PULSE 83; RESP 18; TEMP 98.4; O2SAT 98
[2016-11-20 20:00] VITALS: BP 133/86; PULSE 89; RESP 16; TEMP 98.2; O2SAT 98
[2016-11-21] VITALS: BP 134/87; PULSE 63; RESP 16; TEMP 95.6; O2SAT 95
[2016-11-21] MEDS: ACETAMINOPHEN/HYDROcodone 325 MG/10 MG TAB PO PRN ×4 (06:10→20:11)
[2016-11-21 08:00] VITALS: BP 129/80; PULSE 82; RESP 17; TEMP 97.5; O2SAT 96
[2016-11-21] MEDS: LACTOBACILLUS ACIDOPHILUS TAB PO SCH ×2 (08:38→20:11)
[2016-11-21] MEDS: VENLAFAXINE HCL 75 MG TAB PO SCH ×2 (08:38→20:11)
[2016-11-21] MEDS: IBUPROFEN 400 MG TAB PO PRN ×3 (08:39→22:49)
[2016-11-21] MEDS: SODIUM CHLORIDE 0.9% FLUSH 5 ML FLUSH IVF SCH ×2 (09:00→20:11)
[2016-11-21] MEDS: VANCOMYCIN INJ 1,250 MG in SODIUM CHLOR 0.9% 250 ML INJ 250 ML IV SCH ×2 (10:10→22:50)
[2016-11-21] MEDS ORDERED: PHARMACY ORDERED LAB ONE (10:45)
[2016-11-21 12:00] VITALS: BP 120/78; PULSE 80; RESP 17; TEMP 96.8; O2SAT 96
--- NOTE | 2016-11-21 13:09 | HHI.PR ---
Subjective Remarks Negative bursa culture at 48 hours now. No new complaints from the patient. No fever or chills. Increased range of motion in right arm. Objective Vital Signs Date Time Temp Pulse Resp B/P (MAP) Pulse Ox O2 Delivery O2 Flow Rate FiO2 11/21/16 12:00 96.8 80 17 120/78 (92) 96 11/21/16 08:00 97.5 82 17 129/80 (96) 96 11/21/16 00:00 95.6 63 16 134/87 (103) 95 11/20/16 22:55 18 11/20/16 21:20 18 11/20/16 20:00 98.2 89 16 133/86 (102) 98 11/20/16 16:00 98.4 83 18 121/76 (91) 98 I/O 11/20/16 11/20/16 11/20/16 11/21/16 11/21/16 11/21/16 07:00 15:00 23:00 07:00 15:00 23:00 Intake Total 360 ml 600 ml 622.5 ml Balance 360 ml 600 ml 622.5 ml Intake Oral 360 ml 600 ml 360 ml IV Total 262.5 ml # Voids 3 4 3 # Bowel Movements 1 0 Result Diagram: 11/20/1643911/20/16439 Objective Remarks GENERAL: NAD, A&Ox3 HEAD: Normocephalic. NECK: Supple, trachea midline. No lymphadenopathy. EYES: No scleral icterus. No injection or drainage. CARDIOVASCULAR: Regular rate and rhythm without murmurs, gallops, or rubs. RESPIRATORY: Breath sounds equal bilaterally. No accessory muscle use. GASTROINTESTINAL: Abdomen soft, non-tender, nondistended. MUSCULOSKELETAL: No cyanosis, or edema. Right arm bandage. SKIN: Warm and dry. NEURO: No focal neurological deficitis. A/P Problem List: (1) Sepsis ICD Code: A41.9 - Sepsis, unspecified organism Status: Resolved (2) Bursitis due to bacterial infection ICD Code: M71.10 - Other infective bursitis, unspecified site; B96.89 - Other specified bacterial agents as the cause of diseases classified elsewhere (3) Failure of outpatient treatment ICD Code: Z78.9 - Other specified health status Status: Acute (4) Cellulitis of right arm ICD Code: L03.113 - Cellulitis of right upper limb Status: Acute Assessment and Plan Assessment and Plan 36-year-old male admitted secondary to right elbow cellulitis, bursitis, and sepsis. Cellulitis right elbow Bursitis due to infection of right elbow Continue vancomycin Surgeon following Plan dressing change for tomorrow ID following Anxiety Continue Effexor DVT prophylaxis Ambulation Tu Reyes MD Nov 21, 2016 13:09
[2016-11-21 16:00] VITALS: BP 117/76; PULSE 85; RESP 18; TEMP 96.6; O2SAT 95
[2016-11-21 20:00] VITALS: BP 123/85; PULSE 87; RESP 17; TEMP 97.9; O2SAT 98
[2016-11-22] VITALS: BP 120/76; PULSE 81; RESP 17; TEMP 97.2; O2SAT 99
[2016-11-22] MEDS: ACETAMINOPHEN/HYDROcodone 325 MG/10 MG TAB PO PRN ×3 (00:04→18:40)
--- NOTE | 2016-11-22 07:50 | PD.ORT.PN ---
Subjective Subjective Remarks POD 3 s/p I&D right elbow doing well pain controlled. no complaints. Objective Vitals Vital Signs Date Time Temp Pulse Resp B/P (MAP) Pulse Ox O2 Delivery O2 Flow Rate FiO2 11/22/16 01:04 18 11/22/16 00:00 97.2 81 17 120/76 (91) 99 11/21/16 23:49 18 11/21/16 20:00 97.9 87 17 123/85 (98) 98 11/21/16 16:00 96.6 85 18 117/76 (90) 95 11/21/16 12:00 96.8 80 17 120/78 (92) 96 11/21/16 08:00 97.5 82 17 129/80 (96) 96 I/O 11/21/16 11/21/16 11/21/16 11/22/16 11/22/16 11/22/16 07:00 15:00 23:00 07:00 15:00 23:00 Intake Total 622.5 ml 262.5 ml 480 ml 502.5 ml Balance 622.5 ml 262.5 ml 480 ml 502.5 ml Intake Oral 360 ml 480 ml 240 ml IV Total 262.5 ml 262.5 ml 262.5 ml # Voids 3 6 2 # Bowel Movements 0 0 Result Diagram: 11/20/1643911/20/16439 Objective Remarks RUE: dressings clean and dry. intact. minimal pain with motion. NVI Assessment & Plan Assessment and Plan 1) Right Infectious Olecranon Bursitis s/p I&D - POD 3 -WBAT -daily dressing changes -DC pinrose drain today -awaiting cultures -infectious Dz to manage Abx -ortho cleared for DC once Abx arranged -f/u with Aaron or TASHA in 2 weeks Abraham Tyson Nov 22, 2016 07:50
[2016-11-22 08:00] VITALS: BP 128/65; PULSE 85; RESP 17; TEMP 97; O2SAT 97
[2016-11-22] MEDS: VENLAFAXINE HCL 75 MG TAB PO SCH ×2 (08:41→20:06)
[2016-11-22] MEDS: IBUPROFEN 400 MG TAB PO PRN ×2 (08:41→18:40)
[2016-11-22] MEDS: LACTOBACILLUS ACIDOPHILUS TAB PO SCH ×2 (08:41→20:06)
[2016-11-22] MEDS: SODIUM CHLORIDE 0.9% FLUSH 5 ML FLUSH IVF SCH (09:00)
[2016-11-22] MEDS: VANCOMYCIN INJ 1,250 MG in SODIUM CHLOR 0.9% 250 ML INJ 250 ML IV SCH (10:30)
[2016-11-22 12:00] VITALS: BP 108/56; PULSE 86; RESP 18; TEMP 97.3; O2SAT 96
[2016-11-22] MEDS ORDERED: DOCU100C PO (14:23)
--- NOTE | 2016-11-22 15:37 | HHI.FF ---
Face to Face Verification Diagnosis: (1) Sepsis (2) Bursitis due to bacterial infection (3) Failure of outpatient treatment (4) Cellulitis of right arm Home Health Nursing Order: Wound care and dressing changes IV medication administration I have seen patient Tor Aquino on 11/22/16. My clinical findings support the need for the requested home health care services because: Infection w/ risk of complications Injectable med education/admin I certify that my clinical findings support that this patient is homebound because: Unable to use public transportation Tu Reyes MD Nov 22, 2016 15:37
--- NOTE | 2016-11-22 15:41 | HHI.DS ---
Discharge Summary Admission Date Nov 16, 2016 at 11:49 Discharge Date: Nov 22, 2016 Admitting Diagnosis R elbow infection, failure of outpt RX (1) Sepsis ICD Code: A41.9 - Sepsis, unspecified organism Diagnosis: Principal Status: Resolved (2) Cellulitis of right arm ICD Code: L03.113 - Cellulitis of right upper limb Diagnosis: Principal Status: Acute (3) Bursitis due to bacterial infection ICD Code: M71.10 - Other infective bursitis, unspecified site; B96.89 - Other specified bacterial agents as the cause of diseases classified elsewhere Diagnosis: Principal (4) Failure of outpatient treatment ICD Code: Z78.9 - Other specified health status Diagnosis: Principal Status: Acute Procedures Irrigation and debridement with excision of right olecranon bursa 11/19/16 Brief History - From Admission 36-year-old male with a history of anxiety present to the ED for evaluation of acute onset of right elbow swollen redness and pain rated 6/10 in intensity since Saturday night associated with decrease range of motion as well as febrile episodes. Patient was seen by his PCP on and was prescribed Keflex 500 mg every 8 doxy 100 mg twice a day and was given Rocephin 1 g IM 1. X-ray of the elbow was obtained. Patient also stated that fluid was collected along with blood culture from his elbow, however denies any purulence. This morning, when patient awoke he noticed increased swelling and redness as well as more pain associated with his right elbow. He was advised by his PCP to come to the ED for further evaluation. He reports that 2 weeks ago he sustained a small cut to his right elbow, and at the time had no sign of infection. Otherwise patient denies any GI bleed, he has no chest pain or shortness of breath. CBC/BMP: 11/20/16 0440 11/20/16 0440 Significant Findings Laboratory Tests Test 11/20/16 04:40 11/21/16 10:00 Red Blood Count 4.28 MIL/MM3 (4.50-5.90) Hematocrit 36.7 % (39.0-51.0) Monocytes (%) (Auto) 9.3 % (0.0-8.0) Eosinophils (%) (Auto) 5.8 % (0.0-4.0) Blood Urea Nitrogen 6 MG/DL (7-18) Calcium Level 8.4 MG/DL (8.5-10.1) Estimat Glomerular Filtration Rate 72 ML/MIN (>89) Vancomycin Level Trough 11.9 MCG/ML (5.0-10.0) PE at Discharge GENERAL: NAD SKIN: Warm and dry. HEAD: Normocephalic. EYES: No scleral icterus. No injection or drainage. NECK: Supple, trachea midline. No JVD or lymphadenopathy. CARDIOVASCULAR: Regular rate and rhythm without murmurs, gallops, or rubs. RESPIRATORY: Breath sounds equal bilaterally. No accessory muscle use. GASTROINTESTINAL: Abdomen soft, non-tender, nondistended. MUSCULOSKELETAL: No cyanosis, or edema. Dressing over right elbow BACK: Nontender without obvious deformity. No CVA tenderness. Hospital Course Mr. Aquino is a 36 year old male. He is admitted secondary to a right elbow cellulitis and bursitis. Sepsis was present at time of admit. He has responded to treatment which has included IV Vancomycin and I&D with Ortho. At this point sepsis is resolved and he has stabilized and continues to heal well through time. Ortho has cleared the patient for discharge today. He will need further treatments with IV antibiotics, as recommended by Infectious Disease; 2 weeks of IV vancomycin. Cleared by infectious disease physician for discharge after treatments are arranged. Medically he is stable for discharge to home today. Pt Condition on Discharge: Stable Discharge Disposition: Disch w/ Home Health Serv Discharge Time: > 30 minutes Discharge Instructions Follow up Referrals: Orthopedics - 2 Weeks @ [facility] with Miguelangel Walker MD PCP Follow-up - 2 Weeks New Medications: Docusate Sodium (Docusate Sodium) 100 Mg Cap 100 MG PO BID PRN for CONSTIPATION, #60 CAP 0 Refills Hydrocodone-Acetaminophen ([place]) 5-325 mg Tab 1 TAB PO Q4H PRN for PAIN, #60 TAB 0 Refills Continued Medications: Venlafaxine HCl (Effexor 75 Mg Tab) 75 Mg Tab 75 MG PO BID, TAB Tu Reyes MD Nov 22, 2016 15:41
--- NOTE | 2016-11-22 15:56 | HHI.FF ---
Infusion Therapy Location of Infusion Therapy: Home Health Care IV Infusion Order Patient Information Patient Weight 90 kg Diagnosis: Diagnosis septic bursitis Coded Allergies: No Known Allergies (Unverified , 03/26/13) Administer Medication Vancomycin 1.5 grams IV q 12 hours Start Treatment: Nov 23, 2016 Stop Treatment: Dec 06, 2016 Additional Information Venous access: PICC Line Additional Instructions [x] Peripheral flush and dressing changes per protocol [x] Implanted port and central line construction engineer: * Implanted port: 10 ml Normal Saline followed by 5 ml Heparin 100 units/ml Heparin flush after each use and monthly to maintain. [] May leave port accessed during therapy. [] May leave peripheral site accessed for duration of therapy. [x] If patient has SOB or respiratory distress, check oxygen saturation. If less than 90% or clinical signs of respiratory distress, administer oxygen at 2 L/min. via nasal cannula and notify physician. [x] Anaphylaxis/Reaction orders: * Stop infusion. * Keep IV line open with saline flush. * Notify physician. * Monitor vital signs every 15 minutes until symptoms resolve. * Check Oxygen saturation; Oxygen at 2 L/min. via nasal cannula if less than 90% or clinical signs of respiratory distress. * Administer diphenhydramine (Benadryl) 25 mg IV STAT, (unless patient has received as pre-med). May repeat once, if necessary. * Solu-Cortef 250 mg IVP over 30-60 seconds, use 100 mg vials for each dissolution. * Epinephrine (1mg/1 ml) 0.3 mg subcutaneously or IVP now with any signs of respiratory distress. * Check with physician for new additional pre-med orders if patient is re- challenged or re-treated. [x] May remove PICC line when treatment complete, after confirming with Physician. [x] If the patient is admitted to the hospital, the ED, or transferred via [facility] , complete transfer form including medication reconciliation order sheet. Laboratory Tests Weekly Labs: CBC w/diff, Creatinine, SED Rate, Vancomycin Trough Nataly Figueredo MD Nov 22, 2016 15:56
--- NOTE | 2016-11-22 16:05 | HHI.IDPN ---
Subjective Subjective Remarks doing better no fever Antibiotics vancomuycin Allergies: Coded Allergies: No Known Allergies (Unverified , 03/26/13) Objective . Vital Signs Date Time Temp Pulse Resp B/P (MAP) Pulse Ox O2 Delivery O2 Flow Rate FiO2 11/22/16 12:00 97.3 86 18 108/56 (73) 96 11/22/16 08:00 97.0 85 17 128/65 (86) 97 11/22/16 01:04 18 11/22/16 00:00 97.2 81 17 120/76 (91) 99 11/21/16 23:49 18 11/21/16 20:00 97.9 87 17 123/85 (98) 98 11/22/16 11/22/16 11/23/16 15:00 23:00 07:00 Intake Total 262.5 ml Balance 262.5 ml IV Total 262.5 ml Imaging Last Impressions Upper Extremity Ultrasound 11/16/16 0000 Signed Impressions: Service Date/Time: Wednesday, November 16, 2016 17:01 - CONCLUSION: 1. Small crescentic fluid collection in the soft tissues overlying the distal right arm and elbow with probable overlying cellulitis. Russell Knapp MD Physical Exam CONSTITUTIONAL/GENERAL: This is an adequately nourished patient, in no apparent distress. TUBES/LINES/DRAINS: SKIN: No jaundice, rashes, or lesions. S RESPIRATORY/CHEST: Symmetric, unlabored respirations. C MUSCULOSKELETAL: Extremities without clubbing, cyanosis, or edema. RUE with small erythema over elbow and clean well approximated incision No mottling or clubbing. NEUROLOGICAL: Awake and alert. Nont focal PSYCHIATRIC: calm and cooperative Laboratory Assessment & Plan Remarks Right elbow infected olecranon bursitis, sp I+D - clx negative - prior abx use x 3 days before the surgery Probably staph cultures no growth, abx use 3 days prior to culture was obtained cont vancomycin for 2 more weeks OPAT forms filled out PICC line dw Dr Eric truong mngr tx plan Nataly Birmingham pt, MD Nov 22, 2016 16:05
[2016-11-22] MEDS ORDERED: VANC10IN IV (16:08)
[2016-11-22] MEDS ORDERED: SOLU250I IV PUSH (16:08)
[2016-11-22] MEDS ORDERED: EPIN1INJ21 SQ (16:08)
[2016-11-22] MEDS ORDERED: EPIN1INJ21 IV PUSH (16:08)
[2016-11-22] MEDS ORDERED: LACTTAB8 PO (17:09)
--- NOTE | 2016-11-22 18:55 | RADRPT ---
EXAM DATE/TIME: 11/22/2016 18:24 [facility] COMPARISON: No previous studies available for comparison. INDICATIONS : Post PICC line, patient left arm swollen. MEDICAL HISTORY : None. SURGICAL HISTORY : PICC line ENCOUNTER: Initial ACUITY: 1 day PAIN SCORE: 0/10 LOCATION: Bilateral chest FINDINGS: A left arm PICC is present with 3.5 cm of it looped back on itself within the superior vena cava. No infiltrate, effusion or pneumothorax. Normal heart size. CONCLUSION: Left arm PICC is looped back on itself within the superior vena cava. Jun Bailey MD on November 22, 2016 at 18:53 Board Certified Radiologist. This report was verified electronically.
[2016-11-22] MEDS ORDERED: VANCOMYCIN INJ 1,250 MG in SODIUM CHLOR 0.9% 250 ML INJ 250 ML IV ONE (19:00)
[2016-11-22] MEDS ORDERED: SODIUM CHLORIDE 0.9% FLUSH 10 ML FLUSH IV FLUSH PRN (19:45)
[2016-11-22] MEDS ORDERED: ADULT - PICC FLUSH PRN FOR HEPARIN ALLERGY OR HIT DIAGNOSIS IV FLUSH ×2 (19:45)
--- NOTE | 2016-11-22 19:56 | RADRPT ---
EXAM DATE/TIME: 11/22/2016 19:28 [facility] COMPARISON: CHEST SINGLE AP, November 22, 2016, 18:24. INDICATIONS : Post PICC line placement. MEDICAL HISTORY : None. SURGICAL HISTORY : None. ENCOUNTER: Initial ACUITY: 1 day PAIN SCORE: 0/10 LOCATION: Left chest FINDINGS: A single view of the chest demonstrates the lungs to be symmetrically aerated without evidence of mas s, infiltrate or effusion. The cardiomediastinal contours are unremarkable. Osseous structures are intact. Left arm PICC now has a normal trajectory and tip is at the atriocaval junction. CONCLUSION: Tip of the left arm PICC is at the atriocaval junction. Resolved loop. Lungs remain clear. Jun Bailey MD on November 22, 2016 at 19:54 Board Certified Radiologist. This report was verified electronically.
[2016-11-23] MEDS ORDERED: SODIUM CHLORIDE 0.9% FLUSH 10 ML FLUSH IV FLUSH SCH (09:00)
== END 2016-11-22 20:38 | disposition home or self-care (01) | DRG 854 ==
LOC: NEPD 08:55 → NEDA 11:49 → N07B 13:39
PROVIDERS: ADMIT Hospitalist; ATTEND Hospitalist
PROC: 0PBK0ZZ Excision of Right Ulna, Open Approach (ICD-10-PCS; 2016-11-19)
PROC: 0MB30ZZ Excision of Right Elbow Bursa and Ligament, Open Approach (ICD-10-PCS; principal; 2016-11-19 09:41)
PROC: 02HV33Z Insertion of Infusion Device into Superior Vena Cava, Percutaneous Approach (ICD-10-PCS; 2016-11-22)
PROC: B548ZZA Ultrasonography of Superior Vena Cava, Guidance (ICD-10-PCS; 2016-11-22)
DX: A41.9 Sepsis, unspecified organism (principal); L03.113 Cellulitis of right upper limb; M71.121 Other infective bursitis, right elbow; F41.9 Anxiety disorder, unspecified
CPT/HCPCS: 36569; 71010; 76882; 76937; 80048; 80053; 80202; 83605; 85025; 85610; 85652; 85730; 86140; 87015; 87040; 87070; 87102; 87116; 87205; 87206; 94150; 96365; J1580; J2250; J2270; J2543; J3010; J3370; J7050; J7120